=== PATIENT | male | born 1990 | race Caucasian/White ===

== ENCOUNTER 2016-09-28 08:18 | Emergency (ER) | payer OTHER ==
[~2016-09-28] VITALS: Ht 162.6 cm; Wt 60.0 kg
[2016-09-28 08:20] VITALS: BP 133/88; PULSE 102; RESP 16; TEMP 97.9; O2SAT 99
[2016-09-28] MEDS ORDERED: DICL75TA PO (08:40)
[2016-09-28] MEDS ORDERED: BACL10TA PO (08:40)
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
[2016-09-28] MEDS ORDERED: ACETAMINOPHEN 325 MG TAB PO ONE (08:45)
== END 2016-09-28 09:12 | disposition home or self-care (01) ==
LOC: NEPB 08:18
DX: S06.0X0A Concussion without loss of consciousness, initial encounter (principal); S16.1XXA Strain of muscle, fascia and tendon at neck level, initial encounter; V49.40XA Driver injured in collision with unspecified motor vehicles in traffic accident, initial encounter; Y92.488 Other paved roadways as the place of occurrence of the external cause
CPT/HCPCS: 99283